=== PATIENT | female | born 1945 | race Two or more races ===

== ENCOUNTER 2023-01-19 13:02 | Emergency (ER) | payer SELFPAY ==
[2023-01-19 13:03] VITALS: BP 198/125; PULSE 102; RESP 18; TEMP 36.6; O2SAT 99; BMI 21.0
--- NOTE | 2023-01-19 13:20 | RAD_ITS ---
INDICATION: HTN EXAMINATION/TECHNIQUE: X-RAY - XR Chest 1 View COMPARISON: FINDINGS: LINES/DEVICES: None. LUNGS: No consolidation, edema or effusion. No pneumothorax. MEDIASTINUM AND CARDIOVASCULAR STRUCTURES: Cardiac silhouette not enlarged. Central airways and mediastinal contour are unremarkable. BONES AND SOFT TISSUES: Unremarkable. RAD/Chest 1 View (Portable) IMPRESSION: No radiographic evidence of acute cardiopulmonary disease. Electronically Signed: Tanvir Espinoza, at 14:12 EDT ,
--- NOTE | 2023-01-19 13:21 | EX.ED.DYSGE1 ---
HPI History of Present Illness Chief Complaint: Hypertension Informant: patient Narrative Narrative: Patient presents secondary to hypertension. She made an appointment at the [facility] and her blood pressure there was noted to be over 200 systolic. She states that her primary care physician moved [place] several years ago and she never followed up. She has not had her blood pressure medication in several years. She does not believe her blood pressure has been checked in several years. Patient has no complaints. [facility] Medical History Hypertension Home Medications metoprolol tartrate 25 mg tablet 25 mg PO BID #60 tabs 01/19/23 [Rx Last Taken Unknown] Allergy/AdvReac Type Severity Reaction Status Date / Time tetracycline Allergy Mild Rash Verified 01/19/23 13:05 ROS ROS ED Constitutional Constitutional ED: Denies chills or fever(s) Eyes Eyes: Denies change in vision or discharge from eye(s) ENT ENT ED: Denies discharge from eye(s) or sore throat Cardiovascular Cardiovascular: Denies chest pain or palpitations Respiratory/Chest Respiratory/Chest: Denies cough or dyspnea Gastrointestinal Gastrointestinal: Denies abdominal pain, diarrhea, nausea or vomiting Genitourinary Genitourinary ED: Denies dysuria Musculoskeletal Musculoskeletal: Denies back pain or extremity pain Integumentary Denies Abrasions or rash Neurologic Neurologic: Denies headache(s) or weakness Psychiatric Psychiatric: Denies anxiety or depression Allergic/Immunologic Allergic/Immunologic ED: Denies lip swelling or urticaria EXAM Physical Exam Const Vital Signs: 01/19/23 13:03 Temperature 97.9 F Temperature Source Temporal Pulse Rate 102 H Respiratory Rate 18 Blood Pressure 198/125 H Blood Pressure Mean 149 Pulse Ox 99 Oxygen Delivery Method Room Air Positive well nourished and well developed General Appearance ED: well developed HEENT Reports normocephalic and head/scalp atraumatic Eyes PERRL and EOMs intact bilaterally Neck supple Chest Wall inspection of chest normal and palpation of chest normal Resp normal respiratory effort and clear to auscultation bilaterally Cardio regular rate and regular rhythm GI normal to inspection, nondistended, normoactive bowel sounds Palpation: soft Extremity normal to inspection Neuro oriented x3 and no sensory deficits noted Sensorium / Orientation: alert Motor Exam: strength 5/5 throughout Psych mental status grossly normal Skin no rashes or lesions noted MDM MDM MDM Narrative Medical decision making narrative: Portable chest x-ray obtained to evaluate cardiac silhouette. EKG obtained to evaluate for LVH. Patient given 25 mg p.o. metoprolol. Radiography Diagnostic Testing: Clinical Impression(s) from Imaging Studies Chest X-Ray 01/19/23 13:20 IMPRESSION: No radiographic evidence of acute cardiopulmonary disease. Electronically Signed: Tanvir Espinoza, at 14:12 EDT , Treatment and Re-Evaluation :: EKG per my interpretation is sinus rhythm at 79 bpm. No significant signs of LVH at this time. Portable chest x-ray per my interpretation reveals hyperinflation of the lungs with normal cardiac silhouette. No evidence of cardiomegaly. Patient was given a p.o. dose of metoprolol approximately 45 minutes ago. When I went back to recheck her pressure she states the nurse just did it 5 minutes ago and does not want me to repeat it. She states it was 183 systolic. She given a prescription for metoprolol 25 twice daily x30 days. [facility] met with the patient and gave her a list of primary care physicians in the area that she can establish care with. Return instructions given. Discharge Plan Triage Chief Complaint: Hypertension ED Provider: Lorin Ritchie Dx/Rx/DC Orders Clinical Impression: Hypertension Instructions: ED High Blood Pressure Hypertension Prescriptions: New metoprolol tartrate 25 mg tablet 25 mg PO BID Qty: 60 0RF Activity Restrictions/Additional Instructions: [facility] has given you information to establish a primary care physician in the area. Please see a local physician within the next 30 days to have your blood pressure checked and further prescriptions written. Disposition Disposition: Home, Self Care
[2023-01-19] MEDS: Metoprolol Tartrate 25 MG Tablet PO (14:30)
--- NOTE | 2023-01-19 14:50 | CM.ED ---
Social Work Referral Source: MD Ritchie Referral Reason: PCP list SW met with patient and introduced self and role as [facility] SW. Patient seated on hospital bed and agreeable to speak with SW. Patient inquired about forms for financial assistance as she does not have insurance. SW provided and reviewed PCP list per MD Ritchie's request. SW then review community resources including Medicaid application, [facility] resource list, [facility], information regarding Senior service desk specialist as well as information for [employer] and [facility]. Patient reports she has attempted to apply for insurance but has been denied and unsure why. Patient agreeable to [facility] making referral to Senior service desk specialist with [employer] as she can further assist patient in the community with applications and additional programs. Patient reports no other needs at this time. [facility] updated registration staff patient will need [employer] form to complete. SW made referral to [employer] Instructor. Plan: resources provided, referral to [employer] Izzy MERCADO, ZHANE
[2023-01-19 15:54] VITALS: BP 178/84; PULSE 82; RESP 16; O2SAT 98
--- NOTE | 2023-01-19 15:59 | ED.RN ---
PT DCD AT 1600. UNABLE TO CONFIRM IN COMPUTER
== END 2023-01-19 23:59 | disposition home or self-care (01) ==
LOC: ED 01-26 15:27
PROVIDERS: Emergency Provider Emergency Medicine; Visit Provider Emergency Medicine
DX: I10 Essential (primary) hypertension (principal)
CPT/HCPCS: 71045; 93005; 99282